=== PATIENT | female | born 1950 | race Two or more races ===

== ENCOUNTER 2018-06-17 07:43 | Outpatient (CLI) | payer OTHER | END 2018-06-17 08:41 | disposition home or self-care (01) | LOC: NUCLEAR 07:43 | DX: I25.10 Atherosclerotic heart disease of native coronary artery without angina pectoris (principal) | CPT/HCPCS: 78452; 93017; A9500 ==

== ENCOUNTER → 2020-09-03 | Outpatient (CLI) | payer OTHER | END | disposition home or self-care (01) | LOC: NUCLEAR 10:00 | PROVIDERS: ATTEND Internal Medicine Cardiovascular Disease | DX: M79.642 Pain in left hand (principal); M79.641 Pain in right hand ==

== ENCOUNTER 2020-09-04 10:02 | Outpatient (CLI) | payer OTHER | END 2020-09-04 10:03 | disposition home or self-care (01) | LOC: NUCLEAR 10:02 | PROVIDERS: ATTEND Internal Medicine Cardiovascular Disease | DX: M79.622 Pain in left upper arm (principal); M79.621 Pain in right upper arm ==